=== PATIENT | female | born 1990 | race African-American/Black ===

== ENCOUNTER 2021-06-07 22:02 | Emergency (ER) | payer OTHER ==
[2021-06-08] MEDS ORDERED: cefTRIAXone\\ROCEPHIN 500 MG VIAL ONE (00:05)
[2021-06-08] MEDS ORDERED: Azithromycin 250 MG TAB ONE (00:05)
[2021-06-08] MEDS ORDERED: Lidocaine 1% MPF 2 ML VIAL ONE (00:06)
== END 2021-06-08 00:31 | disposition home or self-care (01) ==
LOC: CSHERS 22:02
DX: K13.0 Diseases of lips (principal); Z20.2 Contact with and (suspected) exposure to infections with a predominantly sexual mode of transmission; F17.210 Nicotine dependence, cigarettes, uncomplicated
CPT/HCPCS: 96372; 99282; J0696

== ENCOUNTER 2021-06-14 13:05 | Emergency (ER) | payer OTHER ==
[2021-06-14] MEDS ORDERED: Lidocaine 4% Topical Sol 50 ML BOT ONE (13:53)
[2021-06-14] MEDS ORDERED: valACYclovir 500 MG TAB PO SCH (14:15)
== END 2021-06-14 14:38 | disposition home or self-care (01) ==
LOC: CSHERS 13:05
DX: B00.89 Other herpesviral infection (principal); F17.210 Nicotine dependence, cigarettes, uncomplicated
CPT/HCPCS: 99283